=== PATIENT | male | born 1960 | race Caucasian/White ===

== ENCOUNTER 2021-05-22 15:00 | Outpatient (RCR) | payer OTHER, SELFPAY ==
[2021-02-25 15:24] VITALS: PULSE 51
== END 2021-05-22 19:30 | disposition home or self-care (01) ==
LOC: ANHCPREHAB 15:00
DX: I25.10 Atherosclerotic heart disease of native coronary artery without angina pectoris (principal); I10 Essential (primary) hypertension
CPT/HCPCS: 93798

== ENCOUNTER 2024-08-07 12:10 | Emergency (ER) | payer OTHER, SELFPAY ==
[2024-08-07 12:13] VITALS: BP 138/70; PULSE 65; RESP 18; TEMP 36.4; O2SAT 100
[2024-08-07 12:36] VITALS: BP 118/69; PULSE 60; RESP 20; O2SAT 100
[2024-08-07] MEDS: methylPREDNISolone SOD SUCC 125 MG VIAL IV PUSH (13:07)
[2024-08-07] MEDS: FAMOTIDINE 20 MG/2 ML VIAL IV PUSH (13:08)
[2024-08-07] MEDS: diphenhydrAMINE HCl INJ 50 MG/ML VIAL 25 MG IV PUSH (13:08)
--- OUTSIDE RECORDS SUMMARY | 2024-08-07 13:55 | XMS_ITS | Clinical Summary ---
Author Organization [facility] Address [address] [place] [address] Care Team Providers Care Supervisor Partial Denture Department Name Role Phone Leander Ramírez MD Unavailable [phone] Ronald Brown MD Primary Care Provider [phone] Source Comments [facility],non-owned Affiliates and Associated Physician Practices is amultiple site organization consisting of ambulatory clinics and hospital sitesin [place], [place] and [place]. This disclosure is being madepursuant to the Care Everywhere program and may not contain all information available regarding this patient. Last updated 17.[facility] Allergies No known active allergies Medications * Be aware that medications may not be up to date on this document. Alwaysverify current medications with the patient. aspirin (ASPIRIN) 81 MG tablet Take 1 tablet by mouth once daily 06/04/2017 Active LORazepam (Ativan) 1 MG tablet TAKE ONE-HALF (1/2) TO ONE TABLET TWICE A DAY NEEDED FOR ANXIETY 90 tablet 1 12/26/2021 Active gabapentin (Neurontin) 300 MG capsuleIndicati ons:PLMD (periodic limb movement disorder) TAKE 1 CAPSULE AT BEDTIME 90 capsule 3 10/07/2023 Active atorvastatin (Lipitor) 40 MG tablet TAKE 1 TABLET BY MOUTH EVERY DAY 90 tablet 4 11/19/2023 Active metoprolol tartrate IR (Lopressor) 25 MG tablet TAKE 1 (ONE) TABLET BY MOUTH 2 TIMES DAILY 180 tablet 4 06/13/2024 Active lisinopril-hydr oCHLOROthiazide (Prinzide; Zestoretic) 20-12.5 MG tablet TAKE 2 TABLETS BY MOUTH ONCE DAILY 180 tablet 1 06/13/2024 Active diclofenac sodium EC (Voltaren) 75 MG tablet Take 1 (one) tablet by mouth 2 times daily Take with food. Take for tendinitis. 60 tablet 1 07/27/2024 Active dicyclomine (Bentyl) 10 MG capsule Take 1 (one) capsule to 2 (two) capsules by mouth 4 times daily Use as needed prn for loose stool. 40 capsule 1 07/27/2024 Active Active Problems Problem Noted Date Diagnosed Date Sensorineural hearing loss (SNHL) of both ears 0 10/21/2023 Coronary artery disease invo lving [place] coronary artery of [place] heart without angina pectoris 10/21/2023 Murmur, cardiac 10/21/2023 Mixed hyperlipidemia 10/21/2023 Benign prostatic hyperplasia with weak urinary s tream 02/28/2019 HESHAM (obstructive sleep apnea) 02/04/2018 Overview (02/04/2018): Started CPAP, 10/2017, treated at [facility] Obesity (BMI 30-39.9) 12/09/2017 Benign non-nodular prostatic hyperplasia without lower urinary tract symptoms 06/26/2016 Screening for condition 05/11/2011 Overview (02/28/2019): Physical - Dr. Ronald Brown 02/28/19 JUDY - 02/28/19 Colonoscopy - Dr Ramírez 10/10/14 - repeat in 10 yrs Vitamin D deficiency 07/28/2010 Overview (06/14/2017): 06/24 - 29.7 10/26 - 39.8 06/27 - 44.7 Essential hypertension, benign 2009 High cholesterol 07/31/2008 Overview (06/14/2017): Lipid panel - 06/27 Asthma 07/31/2008 RLS (restless legs syndrome) 07/31/2008 Resolved Problems Problem Noted Date Diagnosed Date Resolved Date Snoring 06/04/2017 12/09/2017 Overview (06/04/2017): [facility] that referrals are no longer required Will see Dr. Yamila Howell for a follow up sleep study around 06/2017 Encounters Date Type Department Care Team Description 07/28/2024 1:40 PM CDT Office Visit [facility] Care [address], [address] [place] [address] Tucker Luu MD Murmur, cardiac (Primary Dx); Coronary artery disease involving [place] coronary artery of [place] heart without angina pectoris; Essential hypertension, benign; High cholesterol 07/28/2024 Travel 07/27/2024 8:40 AM CDT Office Visit [facility] [id number] [place] [address] [address] [place] [address] Ronald Brown MD Tendinitis of right rotator cuff (Primary Dx); Diarrhea, unspecified type 07/06/2024 Telephone [facility] [id number] [place] [address] [address] [place] [address] Ronald Brown MD Refill Request 06/13/2024 Refill [facility] [id number] [place] [address] [address] [place] [address] Ronald Bronw MD Refill Request 06/12/2024 Refill [facility] [address], [address] [place] [address] Tucker Luu MD Refill Request from Last 3 Months Immunizations Immunization Administration Dates Next Due INFLUENZA VACCINE, TRIV. (AF LURIA, FLUZONE TRIVALENT; 6MO+) (IIV3) 01/23/2013 DT 04/12/1999 HEP A VACCINE, ADULT 02/15/1997,02/11/1996 INFLUENZA VACCINE 01/26/2001, 1,04/14/1999,1997,02/15/1997 INFLUENZA VACCINE, CELL CULT URE, QUADR. (FLUCELVAX QUADRIVALENT; 6MO+) (CCIIV4) 01/04/2020 INFLUENZA VACCINE, QUADR. (F LUZONE; FLULAVAL; FLUARIX; AFLURIA QUADRIVALENT; 6MO+), 0.5 ML (IIV4) 01/13/2021,02/28/2019,02/04/2015,2014 MENINGOCOCAL MENINGITIS 01/26/2001 MMR 08/11/1991 PNEUMOCOCCAL PCV20 CONJ VAC IM 10/21/2023 POLIO OPV 04/22/1980 SMALLPOX (VACCINIA) VACCINE, LIVE 03/12/1980 TD (ADULT), 5 LF TETANUS TOX OID, ADSORBED, PF 02/28/2019 TDAP (7yrs+) 2009 TYPHOID VACCINE 03/12/1980 TYPHOID VACCINE H-P 01/26/2001,11/01/1998 Td (Adult), 2 Lf Tetanus Tox oid, Adsorbed, Pf 08/25/1993 YELLOW FEVER 11/01/1998 Zoster Hzv Vacc Recombinant Inj Im 04/15/2021, Family History Medical History Relation Name Comments Sleep Disorder - Other Brother 1 hesham Hypercholesterolemia Father Hypertension Father Hypertension Mother Relation Name Status Comments Brother 1 Alive Brother 2 Alive Brother 3 Alive Father Mother Alive Sister Alive Social History Tobacco Use Types Packs/Day Years Used Date Smoking Tobacco: Former Cigarettes 1 24 1 979 - 04/12/2002 Smokeless Tobacco: Never Tobacco Cessation:Counseling Given: Not Answered Alcohol Use Standard Drinks/Week Comments Yes 15 (1 standard drink = 0.6 oz pu re alcohol) PHQ-2 Answer Date Recorded Patient Health Questionnaire-2 Score 0 07/27/2024 Sex and Gender Information Value Date Recorded Sex Assigned at Not on file Legal Sex Male 4:23 AM TOP SPOTTER Gender Identity Not on file Sexual Orientation Not on file 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 Not on file Not on file Last Filed Vital Signs Vital Sign Reading Time Taken Comments Blood Pressure 129/82 07/28/2024 1:38 PM CDT Pulse 53 07/28/2024 1:38 PM CDT Temperature 36.8 C (98.2 F) 07/27/2024 9:01 AM CDT Respiratory Rate 20 07/27/2024 9:01 AM CDT Oxygen Saturation 98% 07/27/2024 9:01 AM CDT Inhaled Oxygen Concentration - - Weight 90.7 kg (200 lb) 07/28/2024 1:38 PM CDT Height 170.2 cm (5' 7.01 ) 07/27/2024 9:01 AM CD T Body Mass Index 31.32 07/27/2024 9:01 AM CDT Plan of Treatment Upcoming Encounters Date Type Department Care Team (Late st Contact Info) Description 10/20/2024 8:00 AM CDT Office Visit [facility] - Family Medicine [address] [place], [place] [id number] [place] [address] [place], [place] [id number] 05/02/2025 1:50 PM TOP SPOTTER Office Visit [facility] [address], [address] [place] [address] [place] [address] [place] [address] Health Maintenance Due Date Last Done Comments COLOGUARD (AGES 45-75) - COLON CA SCREENING [address] COLONOGRAPHY - COLON CA SCREENING 1960 FIT - COLON CA SCREENING 1960 FLEX SIG - COLON CA SCREENING 1960 HIV SCREENING 1975 Respiratory Syncytial Virus (RSV) Vaccine Pt: or over 60 yrs (1 - Risk 60-74 years 1-dose series) 2020 COVID-19 VACCINE ( season) 2023 07/02/2020, 06/11/2020 COLONOSCOPY - COLON CA SCREENING 10/10/2024 10/10/2014 (Previously completed) Colorectal Cancer Screening 10/10/2024 INFLUENZA VACCINE (Season Ended) 2024 01/13/2021, 01/04/2020, 02/28/2019, Additional history exists SCREENING FOR DIABETES 10/20/2026 , 10/26/2022, 10/24/2021, Additional history exists DTAP/TDAP/TD VACCINES (4 - Td or Tdap) 02/28/2029 02/28/2019, 2009, 04/12/1999, Additional history exists MENINGOCOCCAL GROUPS A/C/Y/W VACCINE Aged Out 01/26/2001 No longer eligible based on patient's age to complete this topic HEPATITIS C SCREENING Completed 06/12/2017 ZOSTER VACCINE Completed 04/15/2021, 10/17/2020 PNEUMOCOCCAL VACCINE 50+ Completed 10/21/2023 DEPRESSION SCREENING Completed 07/27/2024, 10/21/2023, 10/19/2022, Additional history exists HEPATITIS B VACCINE Aged Out No longe r eligible based on patient's age to complete this topic HIB VACCINE Aged Out No longer eligi ble based on patient's age to complete this topic HPV VACCINE Aged Out No longer eligi ble based on patient's age to complete this topic MENINGOCOCCAL (Group B) VACCINE SHARED DECISION-MAKING Aged Out No longer eligible based on patient's age to complete this topic Goals Goal Patient Goal Type Associated Problems Recent Progress Patient-Stated? Author Blood Pressure < 140/90 Blood Pressure 129/82(2024 1:38 PM CDT) No Sherrell Valadez Procedures Procedure Name Priority Date/Time Associated Diagnosis Comments COMPREHENSIVE METABOLIC PANEL Routine 10/21/2023 9:17 AM CDT Essential hypertension, benign HEPATITIS C ANTIBODY Routine 06/12/2017 8:32 AM TOP SPOTTER Need for hepatitis C screening test from Last 3 Months or Most Recently Relevant to Health Maintenance Results * (ABNORMAL) COMPREHENSIVE METABOLIC PANEL (10/21/2023 9:17 AM CDT) Glucose 97 70 - 105 mg/dL [facility] ACCOUNT BILL BUN 27(H) 7 - 26 mg/dL [facility] ACCOUNT BILL Creatinine 1.01 0.72 - 1.25 mg/dL [facility] ACCOUNT BILL eGFR by CKD-EPI 84(L) >=90 mL/min/1.7 3 m2 [facility] ACCOUNT BILL Sodium 139 136 - 145 mmol/L [facility] ACCOUNT BILL Potassium 4.3 3.5 - 5.1 mmol/L [facility] ACCOUNT BILL Chloride 104 98 - 107 mmol/L [facility] ACCOUNT BILL CO2 27 22 - 29 mmol/L [facility] ACCOUNT BILL Calcium 9.7 8.4 - 10.4 mg/dL [facility] ACCOUNT BILL Protein Total 7.0 6.4 - 8.3 gm/dL [facility] ACCOUNT BILL Albumin 3.9 3.4 - 5.0 gm/dL [facility] ACCOUNT BILL Bilirubin Total 0.6 0.2 - 1.2 mg/dL [facility] ACCOUNT BILL Alkaline Phosphatase 70 40 - 150 U/L [facility] ACCOUNT BILL AST 20 5 - 34 U/L [facility] ACCOUNT BILL ALT 16 0 - 55 U/L [facility] ACCOUNT BILL Comment:FASTING Blood BLOOD SPECIMEN / Unknown 10/21/2023 9:17 AM CDT 10/21/2023 Narrative Resulting Agency Comment Lab Testing performed at: [address] [place] [id number] Ronald Brown MD LAB - CHEMISTRY ORDERABLES Final Result [facility] ACCOUNT BILL [address] [place] [address] * HEPATITIS C ANTIBODY (06/12/2017 8:32 AM TOP SPOTTER) [facility] Hepatitis C Antibody <0.1 0.0 - 0.9 s/co ratio [facility] INSURANCE BILL Comment: Negative: < 0.8 Indeterminate: 0.8 - 0.9 Positive: > 0.9 . The CDC recommends that a positive HCV antibody result be followed up with a HCV Nucleic Acid Amplification test (880982). FASTING Blood BLOOD SPECIMEN / Unknown 06/12/2017 8:32 AM TOP SPOTTER 06/12/2017 Narrative Resulting Agency Comment [facility] [address] [facility] [id number] Ronald Brown MD LAB - CHEMISTRY ORDERABLES Final Result [facility] INSURANCE BILL [address] [place] [address] from Last 3 Months or Most Recently Relevant to Health Maintenance Insurance [facility] [employer] * Guarantor: EDIN CALHOUN Account Type Relation to Patient Date of Phone Billing Address Personal/Family 1960 [address] [facility] [place] [id number] Advance Directives * Full Code (Latest Code Status on File) Date Activated Date Inactivated Comments 12/03/2020 11:37 AM 12/03/2020 5:44 PM Care Teams Supervisor Partial Denture Department Relationship Specialty Start [place] [id number] [place] [address] PCP - General Family Medicine 07/28/19 Leander Ramírez MD Cardiac Cath Technologist Gastroenterology 10/16/14
--- OUTSIDE RECORDS SUMMARY | 2024-08-07 13:55 | XMS_ITS | Encounter Summary ---
Author Organization [facility] Address [address] [place] [address] Care Team Providers Care Corporate Development Analyst Name Role Phone Leander Ramírez MD Unavailable [phone] Ronald Brown MD Primary Care Provider [phone] Ronald Brown MD Primary Care Provider [phone] Ronald Brown MD Primary Care Provider [phone] Reason for Visit * Reason Onset Date Comments MEDICATION REFILL 06/20/2019 Encounter Details Date Type Department Care Team (Late st Contact Info) Description 06/20/[address] [facility] [place] [address] [place], [place] [id number] Kirill Ken MD [address] OF PULMONARY/[place] [address] MEDICATION REFILL Social History Tobacco Use Types Packs/Day Years Used Date Smoking Tobacco: Former Cigarettes 1 24 1 979 - 04/12/2002 Smokeless Tobacco: Never Alcohol Use Standard Drinks/Week Comments Yes 3 (1 standard drink = 0.6 oz pur e alcohol) 18 beers month Sex and Gender Information Value Date Recorded Sex Assigned at Not on file Legal Sex Male 4:23 AM PUBLICATIONS DISTRIBUTION CLERK Gender Identity Not on file Sexual Orientation Not on file 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 [address] [place] [address] [place] [address] [facility] [address] [place] [address] 05/02/2025 1:50 PM PUBLICATIONS DISTRIBUTION CLERK Office Visit [facility] Heart & Vascular Care [address] [facility], [address] [place] [address] [place] [address] [facility] [address] [place] [address] documented as of this encounter Goals Goal Patient Goal Type Associated Problems Recent Progress Patient-Stated? Author Blood Pressure < 140/90 Blood Pressure 129/82(2024 1:38 PM CDT) Sherrell Morin documented as of this encounter Visit Diagnoses Diagnosis PLMD (periodic limb movement disorder) Periodic limb movement disorder documented in this encounter Care Teams Corporate Development Analyst Relationship Specialty [place] [address] [facility] [address] [place] [address] PCP - General Family Medicine 05/01/19 07/12/19 Ronald Brown [place] [id number] [place] [address] [address] [place] [address] PCP - General Family Medicine 07/17/19 07/18/[place] [address] [facility] [address] [place] [address] PCP - General Family Medicine 07/28/19 Leander Ramírez MD [employer] Gastroenterology 10/16/14 documented as of this encounter
[2024-08-07 15:15] VITALS: BP 105/76; PULSE 64; RESP 18; O2SAT 100
[2024-08-07 16:33] VITALS: BP 111/70; PULSE 66; RESP 20; O2SAT 98
--- OUTSIDE RECORDS SUMMARY | 2024-08-07 16:47 | XMS_ITS | Clinical Summary ---
Author Organization [facility] [employer] Address [address] [facility] [place] [address] Care Team Providers Care Manager Drug Name Role Phone Leander Ramírez MD Unavailable [phone] Ronald Brown MD Primary Care Provider [phone] [facility] [employer],non-owned Affiliates and Associated Physician Practices is amultiple site organization consisting of ambulatory clinics and hospital sitesin [place], [place], [place] and [place]. This disclosure is being madepursuant to the Care Everywhere program and may not contain all information available regarding this patient. Last updated 17.[facility] [employer] Allergies No known active allergies Medications * [...] 0 10/21/2023 Coronary artery disease invo lving [place] coronary artery of [place] heart without angina pectoris 10/21/2023 Murmur, cardiac 10/21/2023 Mixed hyperlipidemia 10/21/2023 Benign prostatic hyperplasia with weak urinary s tream 02/28/2019 HESHAM (obstructive sleep apnea) 02/04/2018 Overview (02/04/2018): Started CPAP, 10/2017, treated at [facility] Obesity (BMI 30-39.9) 12/09/2017 Benign [...] Snoring 06/04/2017 12/09/2017 Overview (06/04/2017): [facility] the [facility] that referrals are no longer required Will see Dr. Yamila Howell for a follow up sleep study around 06/2017 Encounters Date Type Department Care Team Description 07/28/2024 1:40 PM CDT Office Visit [facility] Care [address] [facility], [address] [place] [address] Tucker Luu MD Murmur, cardiac (Primary Dx); Coronary artery disease involving [place] coronary artery of [place] heart without angina pectoris; Essential hypertension, benign; High cholesterol 07/28/2024 Travel 07/27/2024 8:40 AM CDT Office Visit [facility] [phone] [place] [address] [address] [place] [address] Ronald Brown MD Tendinitis of right rotator cuff (Primary Dx); Diarrhea, unspecified type 07/06/2024 Telephone [facility] [id number] [place] [address] [address] [place] [address] Ronald Brown MD Refill Request 06/13/2024 Refill [facility] [id number] [place] [address] [address] [place] [address] Ronald Brown MD Refill Request 06/12/2024 Refill [facility] [address] [facility], [address] [place] [address] Tucker Luu MD Refill Request from Last [...] on file Legal Sex Male 4:23 AM TOOTH CLERK Gender Identity Not on file Sexual Orientation Not on file 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 Not [...] Description 10/20/2024 8:00 AM CDT Office Visit [facility] - Family Medicine [address] [facility] [address] [place], [place] [id number] [place] [address] [facility] [address] [place], [place] [phone] 05/02/2025 1:50 PM TOOTH CLERK Office Visit [facility] & Vascular Care [address] [facility], [address] [place] [address] [place] [address] [facility] [address] [place] [address] Health Maintenance Due Date Last [...] HEPATITIS C ANTIBODY Routine 06/12/2017 8:32 AM TOOTH CLERK Need for hepatitis C screening test from [...] Resulting Agency Comment Lab Testing performed at: [address] [place] [id number] Ronald Brown MD LAB - CHEMISTRY ORDERABLES Final Result [facility] ACCOUNT BILL [address] [place] [address] * HEPATITIS C ANTIBODY (06/12/2017 8:32 AM TOOTH CLERK) [facility] Hepatitis C Antibody <0.1 0.0 - 0.9 s/co ratio [facility] INSURANCE BILL Comment: Negative: < 0.8 Indeterminate: 0.8 - 0.9 Positive: > 0.9 . The CDC recommends that a positive HCV antibody result be followed up with a HCV Nucleic Acid Amplification test (980357). FASTING Blood BLOOD SPECIMEN / Unknown 06/12/2017 8:32 AM TOOTH CLERK 06/12/2017 Narrative Resulting Agency Comment [facility] [address] [facility] [id number] Ronald Brown MD LAB - CHEMISTRY ORDERABLES Final Result [facility] INSURANCE BILL [address] [place] [address] from Last 3 Months or Most Recently Relevant to Health Maintenance Insurance [facility] * Guarantor: EDIN CALHOUN Account Type Relation to Patient Date of Phone Billing Address Personal/Family 1960 [address] [facility] [place] [id number] Advance Directives * Full Code (Latest Code Status on File) Date Activated Date Inactivated Comments 12/03/2020 11:37 AM 12/03/2020 5:44 PM Care Teams Manager Drug Relationship Specialty Start [place] Ronald [place] [id number] [place] [address] PCP - General Family Medicine 07/28/19 Leander Ramírez MD Fabricator Foam Rubber Gastroenterology 10/16/14
--- OUTSIDE RECORDS SUMMARY | 2024-08-07 16:47 | XMS_ITS | Encounter Summary ---
Author Organization [facility] Address [address] [place] [address] Care Team Providers Care Glaciologist Name Role Phone Leander Ramírez MD Unavailable [phone] Ronald Brown MD Primary Care Provider [phone] Ronald Brown MD Primary Care Provider [phone] Ronald Brown MD Primary Care Provider [phone] Reason for Visit * Reason Onset Date Comments MEDICATION REFILL 06/20/2019 Encounter Details Date Type Department Care Team (Late st Contact Info) Description 06/20/2019 Refill [facility] Sleep [facility] [place] [address] [place], [place] [id number] Kirill Ken MD [address] OF PULMONARY/[place] [address] MEDICATION REFILL Social History Tobacco Use Types Packs/Day Years Used Date Smoking Tobacco: Former Cigarettes 1 24 1 979 - 04/12/2002 Smokeless Tobacco: Never Alcohol Use Standard Drinks/Week Comments Yes 3 (1 standard drink = 0.6 oz pur e alcohol) 18 beers month Sex and Gender Information Value Date Recorded Sex Assigned at Not on file Legal Sex Male 4:23 AM TELEGRAPH OFFICE TELEPHONE CLERK Gender Identity Not on file Sexual Orientation Not on file 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, [address] [place] [address] [place] [address] [facility] [facility] [place] [address] documented as of this encounter Goals Goal Patient Goal Type Associated Problems Recent Progress Patient-Stated? Author Blood Pressure < 140/90 Blood Pressure 129/82(2024 1:38 PM CDT) Sherrell Morin documented as of this encounter Visit Diagnoses Diagnosis PLMD (periodic limb movement disorder) Periodic limb movement disorder documented in this encounter Care Teams Glaciologist Relationship Specialty [place] [address] [facility] [address] [place] [address] PCP - General Family Medicine 05/01/19 07/12/19 Ronald Brown [place] [id number] [place] [address] [address] [place] [address] PCP - General Family Medicine 07/17/19 07/18/19 [place] [address] [facility] [address] [place] [address] PCP - General Family Medicine 07/28/19 Leander Ramírez MD Deputy Register Of Deeds Gastroenterology 10/16/14 documented as of this encounter
--- NOTE | 2024-08-07 17:18 | ED_ITS ---
HPI - Allergic Reaction General Chief complaint: Allergic Reaction Stated complaint: lip swelling, rash Time Seen by Provider: 08/07/24 12:54 History of Present Illness HPI narrative: Patient is a 64-year-old male who presents ER with rash to his legs and trunk that is been ongoing for 3 days and lip swelling that began today. Patient does take lisinopril. He is also started on diclofenac 1 week ago. Symptoms only worsened during the day after he takes his morning medications and does not worsen the evening. The diclofenac is dose twice a day and lisinopril as dose daily. No difficulty breathing or swelling. No tongue swelling. Rash is nonpruritic and is nummular in appearance. Related Data Home Medications ?Medication ?Instructions ?Recorded ?Confirmed ?Last Taken ?Type aspirin 81 mg tablet 81 mg PO DAILY 02/25/21 08/07/24 Unknown History atorvastatin 40 mg tablet 40 mg PO HS 02/25/21 08/07/24 Unknown History gabapentin 300 mg tablet 300 mg PO HS 02/25/21 08/07/24 Unknown History lorazepam 0.5 mg tablet 0.5 mg PO BID PRN Anxiety 02/25/21 08/07/24 Unknown History metoprolol tartrate 25 mg tablet 25 mg PO BID 02/25/21 08/07/24 Unknown History cetirizine 10 mg tablet (All Day 10 mg PO DAILY PRN allergy symptoms 08/07/24 08/07/24 Unknown History Allergy (cetirizine)) Allergies Allergy/AdvReac Type Severity Reaction Status Date / Time No Known Allergies Allergy Unverified 08/07/24 12:16 Review of Systems Review of Systems: All systems reviewed & are unremarkable except as noted in HPI and below Constitutional: Constitutional: Reports no additional constitutional complaints ENT: Reports system reviewed and no additional complaints, except as documented Cardiovascular: Cardiovascular: Reports no additional cardiovascular complai nts Respiratory: Respiratory: Reports no additional respiratory complaints Allergic/Immunologic: Allergic/Immunologic: Reports lip swelling, Denies throat swelling, Denies tongue swelling and Denies wheezing [facility] Family History Family History (Updated 02/25/21 @ 14:56 by Lin Culp RN) Mother Hypercholesteremia Hypertension Coronary artery disease Hx of CABG Social History Social History Smoking packs per day: 1 Smoking cigarettes per day: 20.0 Years smoked: 20 Smoking pack-years: 20.00 Smoking status: Former smoker Tobacco type: cigarettes Exam Narrative: GENERAL: Well-appearing, well-nourished, and in no acute distress. HEAD: Normocephalic, atraumatic. EYES: PERRL and EOMI. ENT: Mucous membranes moist. Edema of the upper lip and mildly of lower lip. No posterior oropharynx swelling or lingular swelling. NECK: Supple. CHEST: Clear to auscultation. No respiratory distress. Normal phonation. HEART: Regular rate and rhythm. Normal peripheral pulses. ABDOMEN: Soft, nontender, nondistended. EXTREMITIES: Normal range of motion. No edema. SKIN: Warm, dry. Circular lesions of the lower extremities as well as trunk and back that have no scaling or pustules or vesicles. NEURO: Alert and oriented x3. PSYCH: Normal mood and affect. Course Course Emergency Course: Symptoms consistent with allergic rash and angioedema. Recommend discontinuing lisinopril/HCTZ combo medication. Also recommend discontinuing diclofenac. Follow-up with PCP. Will place on steroids for home. Vital Signs Vital signs: Vital Signs Temperature 97.5 F L 08/07/24 12:13 Pulse Rate 65 08/07/24 12:13 Respiratory Rate 18 08/07/24 12:13 Blood Pressure 138/70 08/07/24 12:13 Pulse Oximetry 100 08/07/24 12:13 Oxygen Delivery Room Air 08/07/24 12:13 Temperature 97.5 F L 08/07/24 12:13 Pulse Rate 66 08/07/24 16:33 Respiratory Rate 20 08/07/24 16:33 Blood Pressure 111/70 08/07/24 16:33 Pulse Oximetry 98 08/07/24 16:33 Oxygen Delivery Room Air 08/07/24 12:36 Discharge Plan Discharge Clinical Impression: Angioedema Patient Disposition: Home Condition: Stable Instructions: Angioedema (ED) Additional Instructions: Discontinue your lisinopril/HCTZ medication as well as her diclofenac. Follow up with her primary care doctor. Return the ER if you cannot breathe, you cannot swallow, or you have additional concerns. Patient Language: German Prescriptions: New prednisone 20 mg tablet 40 mg PO DAILY 5 Days Qty: 10 0RF Discontinued lisinopril-hydrochlorothiazide 20-12.5 mg Tablet 1 tablet PO DAILY diclofenac sodium 75 mg tablet,delayed release (DR/EC) 75 mg PO Q12H No Action atorvastatin 40 mg Tablet 40 mg PO HS lorazepam 0.5 mg Tablet 0.5 mg PO BID PRN (Reason: Anxiety) aspirin 81 mg Tablet 81 mg PO DAILY metoprolol tartrate 25 mg Tablet 25 mg PO BID gabapentin 300 mg Tablet 300 mg PO HS cetirizine [All Day Allergy (cetirizine)] 10 mg tablet 10 mg PO DAILY PRN (Reason: allergy symptoms) Follow-up/Referrals: UNKNOWN,DOCTOR [Primary Care Provider] - 1 Week
[2024-08-07 17:40] VITALS: BP 115/74; PULSE 74; RESP 18; O2SAT 98
== END 2024-08-07 17:42 | disposition home or self-care (01) ==
PROVIDERS: Emergency Provider Emergency Medicine
DX: T78.3XXA Angioneurotic edema, initial encounter (principal)
CPT/HCPCS: 96374; 96375; 99284; J1200; J2919